=== PATIENT | male | born 2005 | race Caucasian/White ===

== ENCOUNTER 2024-07-11 03:09 | Emergency (ER) | payer BC, SELFPAY | END 2024-07-11 06:22 | disposition home or self-care (01) | LOC: ERS 03:09 → EDBD 03:09 → ERS 06:22 | DX: S06.0XAA Concussion with loss of consciousness status unknown, initial encounter (principal); F10.129 Alcohol abuse with intoxication, unspecified; Y04.8XXA Assault by other bodily force, initial encounter | CPT/HCPCS: 70450; 72125; 93005 ==